=== PATIENT | female | born 1945 ===

== ENCOUNTER 2023-09-30 23:57 | Emergency (ER) | payer OTHER ==
[~2023-09-30] VITALS: Ht 170.2 cm; Wt 65.8 kg
[~2023-09-30 23:57] MED LIST: LEVSOD175; MECL25 PO; OMEP10ER; SERT25; [UNRECOGNIZED DRUG - CODE]
[2023-10-01] MEDS ORDERED: ALPR.5 PO (00:31)
[2023-10-01 00:56] LABS: BASOPHILS ABSOLUTE AUTO 0.06 K/mm3 (0.00-0.23); BASOPHILS PERCENT AUTO 1 % (0-2); EOSINOPHILS ABSOLUTE AUTO 0.14 K/mm3 (0.00-0.68); EOSINOPHILS PERCENT AUTO 2 % (0-6); Hematocrit 36.9 % (33.0-51.0); Hemoglobin 12.5 g/dL (11.5-16.0); IMMATURE GRAN ABSOLUTE AUTO 0.01 K/mm3 (0.00-0.10); IMMATURE GRAN PERCENT AUTO 0 % (0-1); LYMPHOCYTES PERCENT AUTO 39 % (21-46); MONOCYTES ABSOLUTE AUTO 0.55 K/mm3 (0.16-1.47); MONOCYTES PERCENT AUTO 8 % (4-13); Mean Corpuscular HGB 30.8 pg (26.0-34.0); Mean Corpuscular HGB Conc 33.9 g/dL (31.5-36.5); Mean Corpuscular Volume 91 fL (80-100); Mean Platelet Volume 10.1 fL (9.1-12.4); NEUTROPHILS ABSOLUTE AUTO 3.52 K/mm3 (1.96-9.15); NEUTROPHILS PERCENT AUTO 50 % (41-73); Platelet Count 287 K/mm3 (150-400); Red Blood Cell Count 4.06 M/mm3 (3.80-5.20); White Blood Cell Count 6.98 K/mm3 (4.00-11.30)
[2023-10-01 01:34] LABS: Albumin, Blood 3.7 g/dL (3.4-5.0); Albumin/Globulin Ratio 1.1 (0.8-1.8); Bilirubin, Total 0.3 mg/dL (0.1-1.0); Bun/Creatinine Ratio 24.4 (12.0-20.0); Calcium, Blood 8.6 mg/dL (8.5-10.1); Creatinine, Blood 0.62 mg/dL (0.40-1.00); Free Thyroxine 1.39 ng/dL (0.70-1.60); Globulin, Blood 3.3 g/dL (2.2-4.0); Potassium, Blood 3.7 mmol/L (3.5-5.5); Thyroid Stimulating Hormone 0.757 uIU/mL (0.360-4.800)
[2023-10-01 03:30] VITALS: BP 143/80
== END 2023-10-01 03:40 | disposition home or self-care (01) ==
LOC: ER 23:57
PROVIDERS: Student in an Organized Health Care Education/Training Program
DX: R03.0 Elevated blood-pressure reading, without diagnosis of hypertension (principal); R00.2 Palpitations; E03.9 Hypothyroidism, unspecified
CPT/HCPCS: 71046; 80053; 84439; 84443; 84484; 85025; 93005; 93010; 99284-25